=== PATIENT | male | born 1970 | race Two or more races ===

== ENCOUNTER 2018-09-26 09:06 | Outpatient (CLI) | payer OTHER | END 2018-09-26 09:18 | disposition home or self-care (01) | LOC: MRI 09:06 | DX: I63.8 Other cerebral infarction (principal) | CPT/HCPCS: 70551 ==

== ENCOUNTER 2018-10-08 10:58 | Outpatient (CLI) | payer OTHER | END 2018-10-08 14:33 | disposition home or self-care (01) | LOC: MRI 10:58 | DX: G45.0 Vertebro-basilar artery syndrome (principal) | CPT/HCPCS: 70544 ==

== ENCOUNTER 2018-10-28 11:58 | Outpatient (CLI) | payer OTHER | END 2018-10-28 12:07 | disposition home or self-care (01) | LOC: LAB 11:58 | DX: G45.0 Vertebro-basilar artery syndrome (principal); Z51.81 Encounter for therapeutic drug level monitoring ==

== ENCOUNTER → 2018-10-28 | Outpatient (CLI) | payer OTHER | END | disposition home or self-care (01) | LOC: MRI 10:18 | DX: G45.0 Vertebro-basilar artery syndrome (principal) | CPT/HCPCS: 70549 ==

== ENCOUNTER 2019-05-01 09:20 | Outpatient (CLI) | payer OTHER | END 2019-05-01 09:25 | disposition home or self-care (01) | LOC: SONOGRAMA 09:20 | DX: R10.2 Pelvic and perineal pain (principal) ==

== ENCOUNTER 2025-03-05 16:18 | Outpatient (CLI) | payer OTHER | END 2025-03-05 16:19 | disposition home or self-care (01) | LOC: RAD 16:18 | PROVIDERS: ATTEND Orthopaedic Surgery Sports Medicine | DX: M17.11 Unilateral primary osteoarthritis, right knee (principal); M17.12 Unilateral primary osteoarthritis, left knee ==